=== PATIENT | male | born 2000 | race Hispanic/Latino ===

== ENCOUNTER 2022-02-26 09:46 | Emergency (ER) | payer SELFPAY ==
[2022-02-26 09:57] VITALS: BP 143/90; PULSE 79; RESP 16; TEMP 35.9; O2SAT 98
--- NOTE | 2022-02-26 10:42 | ED.EAR ---
HPI - Ear Problem General Chief complaint: Ear Stated complaint: ear pain Time Seen by Provider: 02/26/22 10:42 Source: patient, RN notes reviewed and old records reviewed Mode of arrival: ambulatory Limitations: no limitations History of Present Illness HPI Narrative: 21-year-old male presents to the [facility] with complaints of ear pain. Reports left ear pain since Tuesday, 3 days. Has been using ear drops from [facility] with no relief. No other treatment prior to arrival. Denies sinus congestion, chest pain or abdominal pain. Denies fevers. Location: left ear Duration: constant Severity: mild Relieving factors: nothing Related Data Allergies Allergy/AdvReac Type Severity Reaction Status Date / Time No Known Allergies Allergy Unknown Verified 02/26/22 09:48 Review of Systems Review of Systems: All systems reviewed & are unremarkable except as noted in HPI and below Constitutional: Constitutional: Reports no additional constitutional complaints, Denies chills and Denies fever(s) Eyes: Eyes: Reports no additional eye complaints ENT: Reports as per HPI and Reports otalgia (left) Cardiovascular: Cardiovascular: Reports no additional cardiovascular complaints Respiratory: Respiratory: Reports no additional respiratory complaints Gastrointestinal: Gastrointestinal: Reports no additional gastrointestinal complaints Musculoskeletal: Musculoskeletal: Reports no additional musculoskeletal complaints Integumentary/Breasts: Skin/Breast: Reports system reviewed and no additional complaints, except as docu Neurologic: Reports system reviewed and no additional complaints, except as documented Psychiatric: Psychiatric: Reports no additional psychiatric complaints Allergic/Immunologic: Allergic/Immunologic: Reports no additional allergic/immunologic complaints PMFSH Past Medical History Medical History Patient denies medical problems Surgical History Surgical History (Updated 02/26/22 @ 10:47 by Savannah Harding APRN) No pertinent past surgical history Comments At the time of my signature, I reviewed and agree with the nursing past medical, surgical, social, and family history. There is no relevant family history pertinent to the patient complaint. Exam Const: General: healthy appearing, comfortable, no acute distress, well developed, alert and well nourished Nutritional Appearance: well nourished Orientation/consciousness: patient oriented x3 Limitations: no limitations HENMT: Head: normal to inspection Ears: external ears normal, Abnormal EAC present erythema and EAC tenderness on the left; no edema and TM abnormal bulging on the left and erythematous on the left Face/Nose/Sinus: Normal external nose present and Normal nares present Face and sinus: normal facial exam Throat: posterior oropharynx normal and uvula midline Eyes: General: appearance normal, both eyes and all related structures Conjunctivae: conjunctivae normal Pupils: Equal, round and reactive pupils present Neck: Neck: normal visual inspection, full ROM, no lymphadenopathy and no meningeal signs Chest: Chest palpation & inspection: normal inspection of the chest Resp: Effort & Inspection: normal respiratory effort and no use of accessory muscles Auscultation: clear to auscultation bilaterally, no crackles, no rales, no rhonchi and no wheezes Cardio: Rate: regular rate Rhythm: regular rhythm Back/Spine/Pelvis: Cervical Spine: cervical ROM normal and No Cervical spine tenderness Thoracic/Lumbar Spine: thoracic and lumbar spine normal to inspection and thoraco-lumbar ROM normal Skin: General skin exam: normal color Rashes: no rashes Wounds: no wounds Neuro: General: patient oriented x3, moves all extremities, no meningeal signs and no focal motor deficits Cranial nerves: Yes Equal, round and reactive pupils present Speech: normal speech Gait exam (Neuro): Normal gait present Extrem:
== END 2022-02-26 10:57 | disposition home or self-care (01) ==
PROVIDERS: Emergency Provider Nurse Practitioner
DX: H66.92 Otitis media, unspecified, left ear (principal); H65.01 Acute serous otitis media, right ear
CPT/HCPCS: 99213; G0463

== ENCOUNTER 2022-03-17 16:09 | Emergency (ER) | payer SELFPAY ==
[2022-03-17 16:19] VITALS: BP 136/83; PULSE 90; RESP 16; TEMP 36.9; O2SAT 99
--- NOTE | 2022-03-17 16:30 | ED.EAR ---
HPI - Ear Problem General Chief complaint: Ear Stated complaint: ear infection Time Seen by Provider: 03/17/22 16:50 Source: patient and RN notes reviewed Mode of arrival: ambulatory Limitations: no limitations History of Present Illness HPI Narrative: 21-year-old male presents with concern for right ear pain and muffled hearing for 2-3 days. Reports he was treated left otitis media couple of weeks ago with antibiotics. Reports the pain in left ear went away but he still has muffled hearing in that ear as well. He denies fever, body aches, chills, sweats, nasal congestion rhinorrhea. He has not been taking any [id number] medications for his symptoms. He denies drainage from any ear MD Complaint: ear pain Related Data Allergies Allergy/AdvReac Type Severity Reaction Status Date / Time No Known Allergies Allergy Unknown Verified 02/26/22 09:48 Review of Systems Review of Systems: CONSTITUTIONAL: Denies malaise, chills, sweats, or fever. EYES: Denies visual changes, redness, or discharge. ENT: Denies rhinorrhea, congestion, sinus pain, and sore throat. Reports bilateral muffled ears, right ear pain CARDIOVASCULAR: Denies chest pain, palpitations, or edema. RESPIRATORY: Denies cough. Denies dyspnea. GASTROINTESTINAL: Denies abdominal pain, nausea, vomiting, diarrhea SKIN: Denies rash or itching. MUSCULOSKELETAL: Denies myalgia. NEUROLOGIC: Denies headache. All systems reviewed & are unremarkable except as noted in HPI and below PMFSH Past Medical History Medical History Patient denies medical problems Surgical History Surgical History (Updated 02/26/22 @ 10:47 by Savannah Harding APRN) No pertinent past surgical history Comments At time of signature, agree with nursing past medical, surgical, social and family history. There is no relevant family history pertinent to the presenting complaint Exam Narrative: GENERAL: Well-appearing, well-nourished, and in no acute distress. HEAD: Normocephalic EYES: PERRLA, conjunctivae clear ENT: Nares clear. Mucous membranes moist. TM pearly cabrera with dull light reflex bilaterally; no tragal tenderness. Oropharynx not erythematous without lesions. Tonsils not enlarged and without exudate, no drooling, no hoarseness, no trismus, uvula midline. NECK: Supple. No lymphadenopathy CHEST: Clear to auscultation, breath sounds equal. No wheezing, rhonchi, rales, or stridor. No respiratory distress, speaks in full sentences. HEART: Regular rate and rhythm. No murmur heard. SKIN: Warm, dry, no rash. NEURO: Alert and oriented x3. PSYCH: Normal mood and affect Course Course Emergency Course: Patient is aware of diagnosis, understands and agrees to treatment plan. Anticipatory guidance given. Patient agrees to follow-up as directed and is aware of reasons to seek care at the emergency department. Portions of this record may have been created with voice recognition software Level of Care: Express Care Visit Vital Signs Vital signs: Vital Signs Temperature 98.4 F 03/17/22 16:19 Pulse Rate 90 03/17/22 16:19 Respiratory Rate 16 03/17/22 16:19 Blood Pressure 136/83 03/17/22 16:19 Pulse Oximetry 99 03/17/22 16:19 Oxygen Delivery Room Air 03/17/22 16:19 Temperature 98.4 F 03/17/22 16:19 Pulse Rate 90 03/17/22 16:19 Respiratory Rate 16 03/17/22 16:19 Blood Pressure 136/83 03/17/22 16:19 Pulse Oximetry 99 03/17/22 16:19 Oxygen Delivery Room Air 03/17/22 16:19 Reviewed. Medical Decision Making MDM Narrative Medical decision making narrative: Differential diagnosis considered: Celeste virus, strep pharyngitis, allergic rhinitis, upper respiratory tract infection, sinusitis, rhinosinusitis, nasopharyngitis. viral pharyngitis, otitis media, otitis externa, otitis effusion, cerumen impaction, foreign body. Exam findings show no acute concerns or changes; patient is non-toxic appearing and is
== END 2022-03-17 17:06 | disposition home or self-care (01) ==
PROVIDERS: Emergency Provider Nurse Practitioner
DX: H69.83 Other specified disorders of Eustachian tube, bilateral (principal)
CPT/HCPCS: 99213; G0463

== ENCOUNTER 2022-04-20 22:21 | Emergency (ER) | payer SELFPAY ==
[2022-04-20 22:24] VITALS: BP 171/95; PULSE 96; RESP 16; TEMP 36; O2SAT 97
--- NOTE | 2022-04-21 00:10 | PC.NURSE ---
Pt called to be taken back to room at this time with no answer.
--- NOTE | 2022-04-21 00:23 | PC.NURSE ---
Pt called at this time with no response from ED lobby.
== END 2022-04-21 00:43 | disposition left against medical advice (07) ==
DX: R51.9 Headache, unspecified (principal)
CPT/HCPCS: 99199

== ENCOUNTER 2024-08-09 15:50 | Emergency (ER) | payer SELFPAY ==
--- NOTE | 2024-08-09 15:53 | ED_ITS ---
HPI - Male Genitourinary General Chief complaint: Urogenital-Male Stated complaint: STD testing Time Seen by Provider: 08/09/24 16:07 Source: patient, RN notes reviewed and old records reviewed Mode of arrival: ambulatory Limitations: no limitations History of Present Illness HPI Narrative: 24-year-old male presents to the [facility] with increasing bilateral testicular pain, penile drainage, burning this that started last week. Did have unprotected sex the week before. Denies any abdominal pain. Denies fevers. Onset (ago): week(s) (1) Related Data Sexually active: Yes Home Medications ?Medication ?Instructions ?Recorded ?Confirmed ?Last Taken ?Type bupropion HCl 300 mg 24 hr tablet, 300 mg PO DAILY 08/09/24 08/09/24 Unknown History extended release methylphenidate HCl 27 mg 27 mg PO DAILY 08/09/24 08/09/24 Unknown History tablet,extended release 24 hr (Concerta) Allergies Allergy/AdvReac Type Severity Reaction Status Date / Time No Known Allergies Allergy Unknown Verified 08/09/24 16:29 Review of Systems Review of Systems: All systems reviewed & are unremarkable except as noted in HPI and below Constitutional: Constitutional: Reports no additional constitutional complaints ENT: Reports system reviewed and no additional complaints, except as documented Cardiovascular: Cardiovascular: Reports no additional cardiovascular complaints, Denies chest pain and Denies dyspnea Respiratory: Respiratory: Reports no additional respiratory complaints, Denies chest congestion, Denies cough and Denies dyspnea Genitourinary: Genitourinary: Reports as per HPI and Reports genital pain Musculoskeletal: Musculoskeletal: Reports no additional musculoskeletal comp laints Integumentary/Breasts: Skin/Breast: Reports system reviewed and no additional complaints, except as docu PMFSH Past Medical History Medical History Patient denies medical problems Surgical History Surgical History No pertinent past surgical history Comments At the time of my signature, I reviewed and agree with the nursing past medical, surgical, social, and family history. There is no relevant family history pertinent to the patient complaint. Exam Const: General: cooperative, healthy appearing, comfortable, no acute distress , well developed, alert and well nourished Nutritional Appearance: well nourished Orientation/consciousness: patient oriented x3 Limitations: no limitations HENMT: Head: normal to inspection Eyes: General: appearance normal, both eyes and all related structures Alignment and Position: alignment normal Neck: Neck: normal visual inspection, full ROM, no lymphadenopathy and no meningeal signs Chest: Chest palpation & inspection: normal inspection of the chest Resp: Effort & Inspection: normal respiratory effort and able to speak in complete sentences Cardio: Rate: regular rate GI: GI Palp: No abdominal tenderness Skin: General skin exam: normal color and no rashes or lesions noted Neuro: General: patient oriented x3, gait normal, moves all extremities and no meningeal signs Cognition (Neuro): normal cognition Speech: normal speech Gait exam (Neuro): Normal gait present Extrem: General: normal to inspection, full ROM, capillary refill normal and normal gait Psych: Appearance: grossly normal and well kempt Mental Status: mental status grossly normal Speech and movement: Normal speech and movement present and Clear speech present Affect: normal affect Attitude: cooperative Course Course Level of Care: Express Care Visit Vital Signs Vital signs: Vital Signs Temperature 97.8 F 08/09/24 15:55 Pulse Rate 82 08/09/24 15:55 Respiratory Rate 16 08/09/24 15:55 Blood Pressure 137/77 08/09/24 15:55 Pulse Oximetry 98 08/09/24 15:55 Oxygen Delivery Room Air 08/09/24 15:55 Temperature 97.8 F 08/09/24 15:55 Pulse Rate 82 08/09/24 15:55 Respiratory Rate 16 08/09/24 15:55 Blood Pressure 137/77 08/09/24 15:55 Pulse Oximetry 98 08/09/24 15:55 Oxygen Delivery Room Air 08/09/24 15:55 Reviewed Transfer Transfered to: [place] Transportation: Other (POV) Transfer rationale: Patient with increasing testicular pain x1 week, penile discharge, unprotected sex, sending for higher level care rule out testicular issues Accepting physician: Spoke with Gwen MASTERSON MDM - Male Genitourinary MDM Narrative Medical decision making narrative: Patient recent history of a protected sex, 1 week history of increasing testicular pain, penile discharge. Sending for higher level of care Deferred exam, deferred testing, sending to ER Transfer instructions reviewed with patient to go directly to the ER due to testicular pain, possible ultrasound of testicles. Discussed with patient to go directly there. All questions have been answered, and the patient deny any further questions. Some parts of this dictation were generated by voice recognition software and may contain typographical and/or grammatical inaccuracies. Differential Diagnosis Differential diagnosis: Likely urinary tract infection, urethritis, prostatitis and other (STI, epididymitis, hydrocele, orchitis) Critical Care Time Critical Care Time Critical Care Time: No Discharge Plan Discharge Clinical Impression: Pain in scrotum or testicle, Discharge from penis Patient Disposition: Acute Care Hospital Condition: Stable Instructions: Antibiotic Form Patient Language: Luxembourgish Prescriptions: No Action methylphenidate HCl [Concerta] 27 mg tablet extended release 24hr 27 mg PO DAILY bupropion HCl 300 mg tablet extended release 24 hr 300 mg PO DAILY Follow-up/Referrals: Altagracia,ZELALEM Diego [Primary Care Provider] -
[2024-08-09 15:55] VITALS: BP 137/77; PULSE 82; RESP 16; TEMP 36.6; O2SAT 98
== END 2024-08-09 16:25 | disposition short-term general hospital (02) ==
PROVIDERS: Emergency Provider Nurse Practitioner; PCP Physician Assistant
DX: N50.82 Scrotal pain (principal); N50.811 Right testicular pain; N50.812 Left testicular pain; R36.9 Urethral discharge, unspecified
CPT/HCPCS: 99212; G0463

== ENCOUNTER 2024-08-09 16:35 | Emergency (ER) | payer SELFPAY ==
--- NOTE | ~2024-08-09 | US_ITS ---
EXAMINATION: US scrotum doppler DATE: 08/09/2024 17:19 INDICATION: Testicular pain TECHNIQUE: Sonographic evaluation of the scrotum was performed assessing grayscale appearance and col or Doppler flow. Spectral Doppler evaluation was also performed. COMPARISON: 05/26/2018 FINDINGS: RIGHT TESTICLE: The right testicle measures 4.8 x 2.1 x 3.1cm. Arterial and venous flow are present. Trace right-sided hydrocele is present. RIGHT EPIDIDYMIS: The right epididymis is enlarged, measuring 2.9 x 1.1 x 1.1cm. Within the right epididymis is a well circumscribed anechoic avascular structure, consistent with a s imple cyst for which no further follow-up is needed. This cyst is unchanged from 2019. Prominent vasculature with Valsalva. Pre-Valsalva measurement less than 3 mm. LEFT TESTICLE: The left testicle measures 4.6 x 2.0 x 3.1cm. Arterial and venous flow are demonstrated. No left-sided hydrocele is present. LEFT EPIDIDYMIS: The left epididymis is unremarkable. Prominent vasculature with Valsalva. Pre-Valsalva measurement less than 3 mm. IMPRESSION: Right epididymal head simple cyst largely unchanged from 2019 examination, given changes in positioni ng and technique. Trace right-sided hydrocele. Reviewed, dictated and finalized at location A. IMPRESSION: Right epididymal head simple cyst largely unchanged from 2019 examination, give n changes in positioning and technique. Trace right-sided hydrocele.
[2024-08-09 16:49] VITALS: BP 148/82; PULSE 98; RESP 16; TEMP 36.2; O2SAT 98
[2024-08-09 18:04] LABS: Add Urine Microscopic? YES; Appearance Urine Turbid (Clear); Bacteria Urine None Seen /hpf; Bilirubin Urine Negative (Negative); Blood Urine Negative (Negative); Color Urine Yellow (Yellow); Glucose Urine UA Negative (Negative); Ketones Urine Negative (Negative); Leukocyte Esterase Ur Negative LEU/UL (Negative); Nitrate Urine Negative (Negative); Non Pathogenic Casts 0-2; Protein Urine Negative (Negative); RBC Urine 0-2 /hpf (0-2); Squamous Epithelial Cell Urine None Seen /hpf (Few); WBC Urine 0-5 /hpf (0-3); pH Urine 8.5 (5.0-9.0)
[2024-08-09 19:01] LABS: Trichomonas Vag PCR NOT DETECTED (NOT DETECTE)
[2024-08-09 19:24] LABS: Chlamydia trachomatis NOT DETECTED (NOT DETECTE); Neisseria gonorrhoeae PCR NOT DETECTED (NOT DETECTE)
--- NOTE | 2024-08-09 19:32 | ED.MALEGU ---
HPI - Male Genitourinary General Chief complaint: Urogenital-Male Stated complaint: right sided testicular pain Time Seen by Provider: 08/09/24 17:32 History of Present Illness HPI Narrative: 24-year-old male presenting to the emergency department with urethritis type symptoms for last week. Patient states that 2 weeks ago he was exposed to potential STDs with a new sexual partner. He had unprotected sex and has been having some right-sided testicular pain and pain in his urethra described as a burning sensation even when not urinating. Notices some clear urethral discharge. No fever chills, no back pain. No testicular injury trauma. He was otherwise in his normal state of health. No history of STDs. Related Data Home Medications ?Medication ?Instructions ?Recorded ?Confirmed ?Last Taken ?Type bupropion HCl 300 mg 24 hr tablet, 300 mg PO DAILY 08/09/24 08/09/24 Unknown History extended release methylphenidate HCl 27 mg 27 mg PO DAILY 08/09/24 08/09/24 Unknown History tablet,extended release 24 hr (Concerta) Allergies Allergy/AdvReac Type Severity Reaction Status Date / Time No Known Allergies Allergy Unknown Verified 08/09/24 16:29 Review of Systems Review of Systems: As reviewed above in HPI [facility] Past Medical History Medical History Patient denies medical problems Surgical History Surgical History No pertinent past surgical history Exam Narrative: GENERAL: [Well-appearing, well-nourished, and in no acute distress.] HEAD: [Normocephalic, atraumatic.] EYES: [PERRLA and EOMI.] ENT: Nares clear, no rhinorrhea or epistaxis. Mucous membranes moist. NECK: Supple. CHEST: [Clear to auscultation. No respiratory distress.] HEART: [Regular rate and rhythm]. No murmur heard. [Normal peripheral pulses.] ABDOMEN: [Soft, nondistended], [nontender], [No rigidity or guarding] EXTREMITIES: Normal range of motion. [No edema.] SKIN: Warm, dry, no rash. NEURO: [No focal deficits]. Alert and oriented [x3.] PSYCH: [Normal mood and affect.] Course Vital Signs Vital signs: Vital Signs Temperature 36.2 C L 08/09/24 16:49 Pulse Rate 98 08/09/24 16:49 Respiratory Rate 16 08/09/24 16:49 Blood Pressure 148/82 H 08/09/24 16:49 Pulse Oximetry 98 08/09/24 16:49 Temperature 36.2 C L 08/09/24 16:49 Pulse Rate 98 08/09/24 16:49 Respiratory Rate 16 08/09/24 16:49 Blood Pressure 148/82 H 08/09/24 16:49 Pulse Oximetry 98 08/09/24 16:49 MDM - Male Genitourinary MDM Narrative Medical decision making narrative: 24-year-old male presenting to the emergency room with chief complaint of urethritis type symptoms with urethral burning, right-sided testicular pain, clear urethral discharge. States that he has no dysuria but does note burning even when he is not urinating. Is concerned about STDs as he had recent sexual contact with a new partner unprotected. Given his complaints of testicular plain a ultrasound of the testicle and scrotum was ordered as well as gonorrhea chlamydia Trichomonas and urinalysis laboratory studies. Patient treated with Rocephin and doxycycline for urethritis. Workup shows negative gonorrhea chlamydia and Trichomonas and urinalysis showed turbid urine but no signs of UTI. Scrotal ultrasound showed right epididymal head simple cyst that is unchanged from prior exam in 2019, trace right-sided hydrocele. Given patient's clinical historical elements very consistent with urethritis he still has a very high post-test probability of gonorrhea or non-gonorrheal urethritis especially that was just urine sample so we offered to treat him empirically with antibiotics which she was amenable to. Patient will be sent home with a prescription for doxycycline and follow up with his PCP. Medical Records Attestation: I reviewed the patient's medical records. Lab Data Attestation: I reviewed the patient's lab results. Labs: Lab Results 08/09/24 Range/Units 17:44 Urine Color Yellow (Yellow) Urine Appearance Turbid H (Clear) Urine pH 8.5 (5.0-9.0) Ur Specific [place] 1.020 (1.001-1.035) Urine Protein Negative (Negative) mg/dL Urine Glucose (UA) Negative (Negative) mg/dL Urine Ketones Negative (Negative) mg/dL Ur Blood (Man) Negative (Negative) Urine Nitrate Negative (Negative) Urine Bilirubin Negative (Negative) Urine Urobilinogen 1.0 (<2.0) mg/dL Leukocyte Esterase Rfl Negative (Negative) MARTA/UL Urine RBC 0-2 (0-2) /hpf Urine WBC 0-5 (0-3) /hpf Ur Squamous Epith Cells None seen (Few) /hpf Urine Bacteria None seen /hpf Urine Casts 0-2 C. trachomatis (PCR) Not detected (NOT DETECTE) N. gonorrhoeae (PCR) Not detected (NOT DETECTE) T. vaginalis (PCR) Not detected (NOT DETECTE) Imaging Data Attestation: I personally reviewed and interpreted this imaging study as follows: My impression: Impressions Scrotum Ultrasound 08/09/24 17:53 IMPRESSION: Right epididymal head simple cyst largely unchanged from 2019 examination, given changes in positioning and technique. Trace right-sided hydrocele. Discharge Plan Discharge Clinical Impression: Urethritis, nonspecific, Hydrocele, right Patient Disposition: Home Condition: Stable Instructions: Antibiotic Form, Nonspecific Urethritis in Men (ED), Urethritis (ED) Additional Instructions: Your ultrasound shows no acute concerning findings aside from a small hydrocele on the right side which is the simple collection of fluid without any signs of infection there. You have a simple cyst that is unchanged from prior exam. Gonorrhea chlamydia and Trichomonas test were negative but your clinical history is very suspicious for urethritis which is an infection of the urethra likely secondary to a different bacteria or small amounts of gonorrhea or chlamydia. We will send you home with a supply of antibiotics, take Tylenol and ibuprofen and follow-up with your regular doctor. Return with any emergent concerns. Patient Language: Gibraltarian Prescriptions: New doxycycline hyclate 100 mg capsule 100 mg PO BID 5 Days Qty: 10 0RF No Action methylphenidate HCl [Concerta] 27 mg tablet extended release 24hr 27 mg PO DAILY bupropion HCl 300 mg tablet extended release 24 hr 300 mg PO DAILY Follow-up/Referrals: Altagracia,ZELALEM Diego [Primary Care Provider] - Time of Disposition: 19:39
[2024-08-09] MEDS: DOXYCYCLINE HYCLATE 100 MG TABLET PO (19:40)
[2024-08-09] MEDS: cefTRIAXone 1 GM VIAL 0.5 GM IM (19:40)
[2024-08-09] MEDS: LIDOCAINE 1% LOCAL INJ 10 ML VIAL (19:41)
== END 2024-08-09 20:09 | disposition home or self-care (01) ==
PROVIDERS: Emergency Provider Student in an Organized Health Care Education/Training Program; PCP Physician Assistant
DX: N34.2 Other urethritis (principal); N43.3 Hydrocele, unspecified
CPT/HCPCS: 76870; 81001; 87491; 87591; 87661; 93976; 96372; 99284; A9270; J0696; J2003

== ENCOUNTER 2024-08-28 22:21 | Emergency (ER) | payer SELFPAY ==
--- NOTE | ~2024-08-28 | CT_ITS ---
CT of the Abdomen and Pelvis: Indication: Pyelonephritis Technique: 2.5 mm axial scans were obtained through the abdomen and pelvis following intravenous adm inistration of 100 cc of Omnipaque 350. Dose reduction technique was used on this scan by utilizing a utomated exposure control and iterative reconstruction technique. The dose-length product (DLP) was 1 564.09 mGy-cm. Findings: Scans through the lung bases are unremarkable. The liver, spleen, pancreas, gallbladder, adrenals and kidneys are within normal limits. No evidence of aortic aneurysm. No lymphadenopathy. No bowel obstruction or bowel wall thickening. There is no evidence to suggest acute appendicitis. Images through the pelvis were performed. Urinary bladder unremarkable. No pelvic mass seen. No ascit es. Impression: No significant abnormalities seen. Reviewed, dictated and finalized at [facility]. Impression: No significant abnormalities seen.
[2024-08-28 22:23] VITALS: BP 132/72; PULSE 108; RESP 16; TEMP 36.8; O2SAT 98
--- NOTE | 2024-08-28 22:38 | PC.NURSE ---
austin cabrales np to order ct abd/pelvis with con to r/o pylonephritis
[2024-08-28 22:39] LABS: Basophils Percent Auto 0.4 % (0.2-1.2); Eosinophils Absolute Auto 0.2 K/mm3 (0-0.3); Eosinophils Percent Auto 1.9 % (0-4.4); Hematocrit 48.4 % (42.0-52.0); Hemoglobin 16.6 g/dL (14.0-18.0); Immature Granulocyte Absolute 0.03 K/mm3 (0.00-0.031); Immature Granulocyte Percent A 0.4 % (0-0.5); Lymphocytes Absolute Auto 2.61 K/mm3 (0.9-3.2); Mean Corpuscular HGB Conc 34.3 g/dl (32-36); Mean Corpuscular Hemoglobin 29.9 pg (26-34); Mean Corpuscular Volume 87.2 fl (80-100); Mean Platelet Volume 9.9 fl (7.4-10.4); Monocytes Absolute Auto 0.6 K/mm3 (0.1-0.6); Monocytes Percent Auto 7.1 % (2.6-8.5); Neutrophils Absolute Auto 4.5 K/mm3 (1.3-6.7); Neutrophils Percent Auto 57.2 % (45.5-73.1); Platelet Count Result 240 k/mm3 (150-375); Red Blood Count 5.55 M/mm3 (4.6-6.20); Red Cell Distribution Width 12.2 % (11.5-14.5); White Blood Count 7.9 K/mm3 (4.5-10.0)
[2024-08-28 22:50] LABS: Add Urine Microscopic? NO; Appearance Urine Clear (Clear); Bilirubin Urine Negative (Negative); Blood Urine Negative (Negative); Color Urine Yellow (Yellow); Glucose Urine UA Negative (Negative); Ketones Urine Trace mg/dL (Negative); Leukocyte Esterase Ur Negative LEU/UL (Negative); Nitrate Urine Negative (Negative); Protein Urine Negative (Negative); Specific Grav Ur 1.027 (1.001-1.035)
[2024-08-28 23:31] LABS: Alanine Aminotransferase 37 U/L (6-50); Albumin Level 4.6 g/dL (3.5-5.1); Alkaline Phosphatase 52 U/L (38-126); Anion Gap 7 mmol/L (4-12); Aspartate Amino Transferase 39 U/L (17-59); Bilirubin,Total 0.4 mg/dL (0.2-1.3); Blood Urea Nitrogen 18 mg/dL (9-20); Calcium 8.7 mg/dL (8.4-10.2); Carbon Dioxide 27 mmol/L (22-30); Chloride 103 mmol/L (98-107); Estimated CRCL calculation 135 ml/min; Estimated Glomerular Filt Rate > 60; Glucose 98 mg/dL (65-110); Lipase 34 U/L (23-300); Sodium 137 mmol/L (137-145)
--- NOTE | 2024-08-29 04:06 | ED_ITS ---
HPI - Male Genitourinary General Chief complaint: Urogenital-Male Stated complaint: Left flank pain-recent tx for UTI Time Seen by Provider: 08/29/24 02:59 History of Present Illness HPI Narrative: 24-year-old male with no significant pertinent past medical history presenting to the emergency department for repeat evaluation of ureteritis type symptoms. Patient was evaluated by myself several weeks ago and diagnosed with potential nongonococcal urethritis after negative urine studies but classical signs and symptoms of this after he had STD exposure. Patient states he did have some improvement after the Rocephin injection and several days of antibiotics but states the symptoms recurred. He states that he has not had any new sexual contacts but has been using the same condom that he had on during a previous encounter and thinks he may have an allergic to the potential lubricant in this as it is recurring his symptoms but without any new partner or new concern for STD. Patient also endorses some left-sided flank pain and thinks he may have pulled a muscle but is not sure if it is related to his urethritis type symptoms. He expresses pain and burning urination at the tip of his urethra but no discharge. No testicular pain, swelling, overlying skin changes or rashes. No abdominal pain otherwise. He was otherwise in his normal state of health denies any trauma. He completed his total course of antibiotics outpatient. Related Data Home Medications ?Medication ?Instructions ?Recorded ?Confirmed ?Last Taken ?Type bupropion HCl 300 mg 24 hr tablet, 300 mg PO DAILY 08/09/24 08/09/24 Unknown History extended release methylphenidate HCl 27 mg 27 mg PO DAILY 08/09/24 08/09/24 Unknown History tablet,extended release 24 hr (Concerta) Allergies Allergy/AdvReac Type Severity Reaction Status Date / Time No Known Allergies Allergy Unknown Verified 08/28/24 22:22 Review of Systems 2 Review of Systems: As reviewed above in HPI [facility] Past Medical History Medical History Patient denies medical problems Surgical History Surgical History No pertinent past surgical history Exam 2 Narrative: GENERAL: [Well-appearing, well-nourished, and in no acute distress.] HEAD: [Normocephalic, atraumatic.] EYES: [PERRLA and EOMI.] ENT: Nares clear, no rhinorrhea or epistaxis. Mucous membranes moist. NECK: Supple. CHEST: [Clear to auscultation. No respiratory distress.] HEART: [Regular rate and rhythm]. No murmur heard. [Normal peripheral pulses.] ABDOMEN: [Soft, nondistended], [nontender], [No rigidity or guarding] EXTREMITIES: Normal range of motion. [No edema.] SKIN: Warm, dry, no rash. NEURO: [No focal deficits]. Alert and oriented [x3.] PSYCH: [Normal mood and affect.] Course Vital Signs Vital signs: Vital Signs Temperature 36.8 C 08/28/24 22: Pulse Rate 108 H 08/28/24 22:23 Respiratory Rate 16 08/28/24 22:23 Blood Pressure 132/72 08/28/24 22:23 Pulse Oximetry 98 08/28/24 22:23 Temperature 36.8 C 08/28/24 22:23 Pulse Rate 108 H 08/28/24 22:23 Respiratory Rate 16 08/28/24 22:23 Blood Pressure 132/72 08/28/24 22:23 Pulse Oximetry 98 08/28/24 22:23 MDM - Male Genitourinary MDM Narrative Medical decision making narrative: 24-year-old otherwise healthy male presenting to the emergency department for repeat evaluation of some potential urethritis symptoms. He was evaluated several weeks ago and completed a course of antibiotics for potential exposure of STDs and had testing done in the ER. He states he initially had improvement after the 1st days of Rocephin and antibiotics but states his symptoms recurred after he used the same condom type and brand that he used during his previous encounter and thinks that this might explain the cause of his symptoms including potential irritation or allergic reaction. He is experiences some dysuria this time and endorses burning with urination and isolated symptoms at the tip of the penis. No rash or overlying skin changes. No cystic or pain. He states that he has also had some flank pain and not sure if this is related or from working and tweaking 1 of his muscles in his back. He otherwise is well-appearing with reassuring vital signs and unremarkable abdominal examination. Repeat urinalysis and STD panel was ordered given his concerns of urethritis and a CT of the abdomen pelvis was ordered as well as blood work. Patient CT scan came back and reviewed independently. No signs of any acute abnormality. Patient's STD panel again negative here and no signs of urinary tract infection. His laboratory studies are normal. His symptomatology could be related to hypersensitivity or reaction to the latex or lubricant in the condom that he was using. Patient instructed on to stop using this or change brands and he was also provided a urologist follow-up in case is a persistent concern and also given a short course of phenazopyridine to see if that helps his symptoms. Patient verbalized understanding and safely discharged. Medical Records Attestation: I reviewed the patient's medical records. Lab Data Attestation: I reviewed the patient's lab results. 08/28/24 22:32 08/28/24 22:32 Labs: Lab Results 08/28/24 08/28/24 Range/Units 22:32 22:42 WBC 7.9 (4.5-10.0) K/mm3 RBC 5.55 (4.6-6.20) M/mm3 Hgb 16.6 (14.0-18.0) g/dL Hct 48.4 (42.0-52.0) % MCV 87.2 (80-100) fl MCH 29.9 (26-34) pg MCHC 34.3 (32-36) g/dl RDW 12.2 (11.5-14.5) % Plt Count 240 (150-375) k/mm3 MPV 9.9 (7.4-10.4) fl Immature Gran % (Auto) 0.4 (0-0.5) % Neut % (Auto) 57.2 (45.5-73.1) % Lymph % (Auto) 33.0 (18.3-44.2) % [place] % (Auto) 7.1 (2.6-8.5) % Eos % (Auto) 1.9 (0-4.4) % Baso % (Auto) 0.4 (0.2-1.2) % Lymph # (Auto) 2.61 (0.9-3.2) K/mm3 [place] # (Auto) 0.6 (0.1-0.6) K/mm3 Eos # (Auto) 0.2 (0-0.3) K/mm3 Baso # (Auto) 0.0 (0.0-0.1) K/mm3 Abs Immat Gran (auto) 0.03 (0.00-0.031) K/mm3 Absolute Neuts (auto) 4.5 (1.3-6.7) K/mm3 Absolute Nucleated RBC 0.000 (0.0-0.012) K/mm3 Nucleated RBC % 0.0 (0.0-0.2) % Sodium 137 (137-145) mmol/L Potassium 4.0 (3.4-5.0) mmol/L Chloride 103 (98-107) mmol/L Carbon Dioxide 27 (22-30) mmol/L Anion Gap 7 (4-12) mmol/L BUN 18 (9-20) mg/dL Creatinine 0.93 (0.7-1.3) mg/dL Estim Creat Clear Calc 135 ml/min Estimated GFR > 60 (59 - ) Glucose 98 (65-110) mg/dL Calcium 8.7 (8.4-10.2) mg/dL Total Bilirubin 0.4 (0.2-1.3) mg/dL AST 39 (17-59) U/L ALT 37 (6-50) U/L Alkaline Phosphatase 52 (38-126) U/L Total Protein 8.0 (6.3-8.2) g/dL Albumin 4.6 (3.5-5.1) g/dL Lipase 34 (23-300) U/L Urine Color Yellow (Yellow) Urine Appearance Clear (Clear) Urine pH 7.0 (5.0-9.0) Ur Specific [place] 1.027 (1.001-1.035) Urine Protein Negative (Negative) mg/dL Urine Glucose (UA) Negative (Negative) mg/dL Urine Ketones Trace H (Negative) mg/dL Ur Blood (Man) Negative (Negative) Urine Nitrate Negative (Negative) Urine Bilirubin Negative (Negative) Urine Urobilinogen 1.0 (<2.0) mg/dL Leukocyte Esterase Rfl Negative (Negative) MARTA/UL C. trachomatis (PCR) Not detected (NOT DETECTE) N. gonorrhoeae (PCR) Not detected (NOT DETECTE) T. vaginalis (PCR) Not detected (NOT DETECTE) Imaging Data Attestation: I personally reviewed and interpreted this imaging study as follows: My impression: Impressions Abdomen/Pelvis CT 08/29/24 05:22 Impression: No significant abnormalities seen. Discharge Plan Discharge Clinical Impression: Dysuria Patient Disposition: Home Condition: Stable Instructions: Antibiotic Form, Dysuria (ED) Additional Instructions: Your CT scan was unremarkable without any acute findings in your kidneys are normal. Your laboratory studies are all within normal limits and your STD panel again was negative. Your symptoms could be secondary to hypersensitivity to latex or the lubricant in the condom they are using. Refrain from using this brand and re-evaluated. We will send you home with a prescription for phenazopyridine which can help burning urinary pain. No present indications for antibiotics. Follow-up with the provided urologist on outpatient basis is this is a persistent concern. Patient Language: Hebrew Prescriptions: New phenazopyridine 200 mg tablet 200 mg PO TID Qty: 6 0RF No Action methylphenidate HCl [Concerta] 27 mg tablet extended release 24hr 27 mg PO DAILY bupropion HCl 300 mg tablet extended release 24 hr 300 mg PO DAILY doxycycline hyclate 100 mg capsule 100 mg PO BID 5 Days Qty: 10 0RF Follow-up/Referrals: Altagracia,ZELALEM Diego [Primary Care Provider] - Drake Diaz MD [Physician] - 1 Week (Persistent dysuria) Time of Disposition: 06:21
[2024-08-29 05:34] LABS: Trichomonas Vag PCR NOT DETECTED (NOT DETECTE)
[2024-08-29 05:58] LABS: Chlamydia trachomatis NOT DETECTED (NOT DETECTE); Neisseria gonorrhoeae PCR NOT DETECTED (NOT DETECTE)
[2024-08-29 06:45] VITALS: BP 126/79; PULSE 99; RESP 17; TEMP 36.8; O2SAT 99
== END 2024-08-29 06:47 | disposition home or self-care (01) ==
PROVIDERS: Emergency Provider Student in an Organized Health Care Education/Training Program; PCP Physician Assistant
DX: R30.0 Dysuria (principal)
CPT/HCPCS: 36415; 74177; 80053; 81003; 83690; 85025; 87491; 87591; 87661; 99284; Q9967